=== PATIENT | female | born 1955 | race Hispanic/Latino ===

== ENCOUNTER 2018-11-01 17:24 | Inpatient (IN) | payer OTHER, MEDICARE | END 2018-11-05 15:30 | disposition home or self-care (01) | LOC: EDH 17:24 → EDHIP 22:15 → 3BH 23:28 | DX: K52.9 Noninfective gastroenteritis and colitis, unspecified (principal); I50.9 Heart failure, unspecified; I11.0 Hypertensive heart disease with heart failure ==

== ENCOUNTER 2019-03-12 23:31 | Observation (INO) | payer OTHER ==
[~2019-03-12] VITALS: Ht 157.5 cm; Wt 94.6 kg
[~2019-03-12 23:31] MED LIST: ACET-66 PO; ALBU8.5H8 IH; DIGO-34 PO; ENOX100D4 SQ; FURO40TA5 PO; OLME40TA18 PO; WARF-57 PO; WARF7.5T49 PO
[2019-03-12] MEDS ORDERED: ACETAMINOPHEN EXTRA STRENGTH 500 MG TABLET ONE (23:57)
[2019-03-13] MEDS ORDERED: IBUPROFEN 400 MG TABLET ONE (00:09)
[2019-03-13] MEDS ORDERED: LIDOCAINE HCL 2% VISCOUS 15 ML UDCUP ONE (00:09)
[2019-03-13] MEDS ORDERED: MAG HYDROX/AL HYDROX/SIMETH ES 30 ML SUSP UDCUP ONE (00:09)
[2019-03-13] MEDS ORDERED: IBUPROFEN 200 MG TAB ONE (00:10)
[2019-03-13] MEDS ORDERED: ALBUTEROL SULFATE 0.083% 2.5 MG/3 ML INH IH ONE (00:18)
[2019-03-13] MEDS ORDERED: LEVOFLOXACIN 750 MG/D5W 150 ML 150 ML ONE (01:38)
[2019-03-13] MEDS ORDERED: CEFTRIAXONE SODIUM 1 GM ONE (01:38)
[2019-03-13 02:15] LABS: BASOPHILS % (AUTO) 0.4 % (0.0-5.0); EOSINOPHILS % (AUTO) 4.4 % (0.0-8.0); HEMATOCRIT 35.2 % (36-48); LYMPHOCYTES % (AUTO) 13.9 % (21.0-51.0); MEAN CORPUSCULAR HEMOGLOBIN 29.7 pg (27.0-33.0); MEAN CORPUSCULAR HGB CONC 33.8 g/dL (32.0-36.0); MEAN CORPUSCULAR VOLUME 87.6 fL (79-99); MONOCYTES % (AUTO) 7.9 % (3.0-13.0); NEUTROPHILS % (AUTO) 73.4 % (40.0-77.0); NUCLEATED RED BLOOD CELLS 0.1 % (0.0-0.19); PLATELET COUNT (AUTO) 164 K/uL (130-400); RED BLOOD CELL COUNT(AUTO) 4.01 MIL/uL (4.00-5.50); RED CELL DISTRIBUTION WIDTH 14.5 % (11.0-15.5); WHITE BLOOD COUNT (AUTO) 8.3 K/uL (4.8-10.8)
[2019-03-13 02:30] LABS: INR 1.97 (0.85-1.15); PARTIAL THROMBOPLASTIN TIME 41.8 SEC (26.3-35.5); PROTHROMBIN TIME 20.2 SEC (9.6-11.6)
[2019-03-13 02:34] LABS: ALBUMIN 3.5 g/dL (3.5-5.0); BILIRUBIN,TOTAL 0.8 mg/dL (0.2-1.0); CREATININE 0.8 mg/dL (0.5-1.5); TOTAL PROTEIN, SERUM 7.4 g/dL (6.0-8.3)
[2019-03-13 02:43] LABS: B-TYPE NATRIURETIC PEPTIDE 88 pg/mL (0-100); POTASSIUM 2.7 mmol/L (3.5-5.1)
[2019-03-13] MEDS ORDERED: ONDANSETRON HCL 4 MG/2 ML VIAL IV PRN (03:30)
[2019-03-13] MEDS ORDERED: LACTULOSE 20 GM/30 ML UDCUP PO PRN (03:30)
[2019-03-13] MEDS ORDERED: ACETAMINOPHEN 325 MG TAB PO PRN (03:30)
[2019-03-13 03:45] LABS: APPEARANCE,URINE Clear (CLEAR); BILIRUBIN,URINE Negative (NEGATIVE); COLOR,URINE Yellow (YELLOW); GLUCOSE, URINE (UA) Negative (NEGATIVE); KETONES,URINE Negative (NEGATIVE); LEUKOCYTE ESTERASE ,URINE Moderate (NEGATIVE); NITRATE,URINE Negative (NEGATIVE); OCCULT BLOOD,URINE Moderate (NEGATIVE); PROTEIN,URINE Negative (NEGATIVE)
[2019-03-13] MEDS ORDERED: LIDOCAINE HCL-MPF 1% 2ML VIAL IV PRN (03:45)
[2019-03-13] MEDS ORDERED: POTASSIUM CHLORIDE 10MEQ/100ML 100 ML IV PRN (03:45)
[2019-03-13] MEDS ORDERED: POTASSIUM CHLORIDE 10% ELIXIR 20 MEQ/15 ML UDCUP PO PRN (03:45)
[2019-03-13] MEDS ORDERED: POTASSIUM CHLORIDE 20 MEQ ERTAB PO ONE (04:05)
[2019-03-13 04:18] LABS: BACTERIA,URINE Few /HPF (None Seen)
[2019-03-13 04:30] VITALS: BP 139/78
[2019-03-13] MEDS ORDERED: BENZ-51 PO (04:37)
[2019-03-13] MEDS ORDERED: AZIT500T4 PO (04:37)
[2019-03-13] MEDS ORDERED: DAYQUIL PO (04:44)
[2019-03-13] MEDS ORDERED: ALBU2.5V2 IH (04:46)
[2019-03-13] MEDS ORDERED: OSEL75CA17 PO (05:24)
[2019-03-13] MEDS: IPRATROPIUM/ALBUTEROL SULFATE 3 ML SOLUTION IH SCH ×4 (06:22→23:12)
[2019-03-13] MEDS: METHYLPREDNISOLONE SOD SUCC 40MG/ML 1ML IVP SCH ×3 (07:14→20:10)
[2019-03-13] MEDS: AZITHROMYCIN 500MG+NS 250ML 250 ML IV SCH (07:14)
[2019-03-13] MEDS: POTASSIUM CHLORIDE 20 MEQ ERTAB PO PRN ×3 (07:23→20:10)
[2019-03-13 07:29] VITALS: BP 136/75
[2019-03-13] MEDS: FAMOTIDINE 20MG TAB 20 MG TAB PO SCH ×2 (08:23→20:10)
[2019-03-13] MEDS ORDERED: ENOXAPARIN SODIUM 40 MG/0.4 ML SYRINGE SQ SCH (09:00)
[2019-03-13 11:02] VITALS: BP 153/84
--- NOTE | 2019-03-13 13:49 | NUR ---
DCP CM met with pt discussed dc plans. Pt is independent prior to admission, lives at home w/spouse. Denies any equipments/services. Feels safe to go back home, spouse able to assist with transportation and needs as necessary. DC plan to home once stable. CM to cont to follow up. Addendum: 03/13/19 at 1350 by FAROOQ ROONEY LVN CM Amended: Links added.
--- NOTE | 2019-03-13 14:44 | NUR ---
RD Notification Pt admitted for community acquired pneumonia, Hx of CAD, HTN,CHF. Pt with Heart Healthy Diet in place. Upon visit, Pt reports tolerating current diet order with no report of GI distress, Good PO intake (100%). Recommend to continue current diet order. Pt LBM 03/12/19. Pt monitored labs: K 2.7, BG 120. RD to continue to monitor. Please notify RD as nutrition concerns arise. Thank you. Addendum: 03/13/19 at [address] RD Amended: Links added.
[2019-03-13 16:42] VITALS: BP 162/94
[2019-03-13] MEDS ORDERED: WARFARIN SODIUM 5 MG TAB PO SCH (19:00)
[2019-03-13 19:49] VITALS: BP 179/97
[2019-03-13] MEDS: BENZONATATE 100 MG CAPSULE PO SCH (20:09)
[2019-03-13] MEDS: HYDRALAZINE HCL 20 MG/ML VIAL IV PRN (20:11)
[2019-03-13] MEDS: LEVOFLOXACIN 500 MG/D5W 100 ML 100 ML IV SCH (23:02)
[2019-03-13 23:24] VITALS: BP 148/94
[2019-03-14 03:59] VITALS: BP 114/72
[2019-03-14] MEDS ORDERED: GUAIFENESIN-DM 200/20 MG 10 ML PO PRN (04:30)
--- NOTE | 2019-03-14 04:30 | NUR ---
ROUNDS PATIENT AWAKE AND ALERT. VOICES ALL NEEDS. NO COMPLAINTS OF PAIN VOICED AT THIS TIME. PATIENT STATES THAT SHE NEEDS BETTER COUGH MEDICATION, BRANDY WAGGONER AWARE. NEW ORDERS RECEIVED AND CARRIED OUT. RESP EVEN AND UNLABORED. NO SOB NOTED. O2 ON AT 2LPM VIA NASAL CANNULA. UP AD KRISTINA. TOLERATING IV ABT WELL. NO ADVERSE REACTIONS NOTED. DROPLET PRECAUTIONS IN PLACE. NO SIGNS OF RESP DISTRESS NOTED. CALL LIGHT WITHIN REACH. WILL CONTINUE TO BE OBSERVED. Addendum: 03/14/19 at 0604 by WENDY ALFONSO RN RN Amended: Links added.
[2019-03-14 04:32] LABS: BASOPHILS % (AUTO) 0.2 % (0.0-5.0); EOSINOPHILS % (AUTO) 0.1 % (0.0-8.0); LYMPHOCYTES % (AUTO) 11.7 % (21.0-51.0); MEAN CORPUSCULAR HEMOGLOBIN 29.9 pg (27.0-33.0); MEAN CORPUSCULAR HGB CONC 34.1 g/dL (32.0-36.0); MEAN CORPUSCULAR VOLUME 87.6 fL (79-99); MONOCYTES % (AUTO) 4.7 % (3.0-13.0); NEUTROPHILS % (AUTO) 83.3 % (40.0-77.0); PLATELET COUNT (AUTO) 146 K/uL (130-400); RED CELL DISTRIBUTION WIDTH 14.6 % (11.0-15.5); WHITE BLOOD COUNT (AUTO) 7.1 K/uL (4.8-10.8)
[2019-03-14] MEDS: AZITHROMYCIN 500MG+NS 250ML 250 ML IV SCH (04:41)
[2019-03-14 04:42] LABS: CREATININE 0.8 mg/dL (0.5-1.5); POTASSIUM 4.1 mmol/L (3.5-5.1)
[2019-03-14] MEDS: METHYLPREDNISOLONE SOD SUCC 40MG/ML 1ML IVP SCH ×3 (04:42→20:05)
[2019-03-14] MEDS: IPRATROPIUM/ALBUTEROL SULFATE 3 ML SOLUTION IH SCH ×4 (06:13→23:09)
[2019-03-14 07:44] VITALS: BP 148/75
[2019-03-14] MEDS: Olmesartan Medoxomil 40 MG PO SCH (09:00)
[2019-03-14] MEDS: BENZONATATE 100 MG CAPSULE PO SCH ×3 (09:47→20:04)
[2019-03-14] MEDS: DIGOXIN 250 MCG TABLET PO SCH (09:47)
[2019-03-14] MEDS: FAMOTIDINE 20MG TAB 20 MG TAB PO SCH ×2 (09:47→20:04)
[2019-03-14] MEDS: FUROSEMIDE 40 MG TABLET PO SCH (09:47)
[2019-03-14 11:26] VITALS: BP 142/72
--- NOTE | 2019-03-14 14:39 | NUR ---
RD FOLLOW UP PT ON COUMADIN MEDICATION SINCE 2003 AND IS FAMILIAR WITH NUTRITION/MEDICATION INTERACTION PER PT. PT WAS ABLE TO IDENTITY FOODS HIGH IN VITAMIN K CONTENT AND AGREED TO RECEIVE MORE INFORMATION DURING VISIT. RD PROVIDED COUMADIN DIET AND NUTRITION EDUCATION. PT VERBALIZED UNDERSTANDING. EDUCATION MATERIALS WERE PROVIDED. Addendum: 03/14/19 at [address] Amended: Links added.
--- NOTE | 2019-03-14 14:43 | NUR ---
NUTRITION EDUCATION PT ON COUMADIN MEDICATION SINCE 2003 AND IS FAMILIAR WITH NUTRITION/MEDICATION INTERACTION PER PT. PT WAS ABLE TO IDENTITY FOODS HIGH IN VITAMIN K CONTENT AND AGREED TO RECEIVE MORE INFORMATION DURING VISIT. RD PROVIDED COUMADIN DIET AND NUTRITION EDUCATION. PT VERBALIZED UNDERSTANDING. EDUCATION MATERIALS WERE PROVIDED. Addendum: 03/14/19 at [address] Amended: Links added.
[2019-03-14] MEDS ORDERED: WARFARIN SODIUM 7.5 MG TAB PO SCH (16:00)
[2019-03-14 16:38] VITALS: BP 181/86
[2019-03-14] MEDS ORDERED: FUROSEMIDE 10 MG/ML 2ML VIAL IV SCH (17:55)
[2019-03-14 19:15] VITALS: BP 166/94
[2019-03-14] MEDS: HYDRALAZINE HCL 20 MG/ML VIAL IV PRN (20:05)
[2019-03-14] MEDS: ACETAMINOPHEN 325 MG TAB PO PRN (20:06)
[2019-03-14 23:31] VITALS: BP 150/96
[2019-03-15] MEDS: LEVOFLOXACIN 500 MG/D5W 100 ML 100 ML IV SCH (00:03)
[2019-03-15] MEDS ORDERED: METOPROLOL TARTRATE 1 MG/ML 5ML VIAL IV PRN (01:45)
[2019-03-15 02:47] VITALS: BP 157/103
[2019-03-15] MEDS: ACETAMINOPHEN 325 MG TAB PO PRN (03:20)
[2019-03-15] MEDS: IPRATROPIUM/ALBUTEROL SULFATE 3 ML SOLUTION IH SCH ×2 (05:09→10:54)
[2019-03-15 05:24] LABS: BASOPHILS % (AUTO) 0.1 % (0.0-5.0); HEMATOCRIT 33.9 % (36-48); LYMPHOCYTES % (AUTO) 7.6 % (21.0-51.0); MEAN CORPUSCULAR HEMOGLOBIN 29.8 pg (27.0-33.0); MEAN CORPUSCULAR HGB CONC 33.9 g/dL (32.0-36.0); MONOCYTES % (AUTO) 4.8 % (3.0-13.0); NEUTROPHILS % (AUTO) 87.5 % (40.0-77.0); PLATELET COUNT (AUTO) 206 K/uL (130-400); RED BLOOD CELL COUNT(AUTO) 3.86 MIL/uL (4.00-5.50); WHITE BLOOD COUNT (AUTO) 11.5 K/uL (4.8-10.8)
[2019-03-15] MEDS: AZITHROMYCIN 500MG+NS 250ML 250 ML IV SCH (05:26)
[2019-03-15] MEDS: METHYLPREDNISOLONE SOD SUCC 40MG/ML 1ML IVP SCH ×2 (05:26→14:00)
[2019-03-15 05:31] LABS: CREATININE 0.8 mg/dL (0.5-1.5); POTASSIUM 3.7 mmol/L (3.5-5.1)
[2019-03-15 05:35] LABS: INR 1.96 (0.85-1.15); PROTHROMBIN TIME 20.1 SEC (9.6-11.6)
[2019-03-15 05:45] VITALS: BP 139/80
[2019-03-15] MEDS: Olmesartan Medoxomil 40 MG PO SCH (07:53)
[2019-03-15 08:00] VITALS: BP 147/90
[2019-03-15] MEDS: DIGOXIN 250 MCG TABLET PO SCH (09:21)
[2019-03-15] MEDS: FAMOTIDINE 20MG TAB 20 MG TAB PO SCH (09:21)
[2019-03-15] MEDS: FUROSEMIDE 40 MG TABLET PO SCH (09:21)
[2019-03-15] MEDS: BENZONATATE 100 MG CAPSULE PO SCH ×2 (09:21→14:00)
[2019-03-15] MEDS ORDERED: CEFD300C3 PO (11:13)
[2019-03-15 11:55] VITALS: BP 152/94
--- NOTE | 2019-03-15 13:46 | NUR ---
DISCHARGE HOME INSTRUCTIONS GIVEN AND EXPLAINED UTILIZING TEACH BACK METHOD. INSTRUCTED ON PT/INR FOLLOW UP WITH DR. BRIDGES ON 03/20/19 AT 8:30 A.M. SPOKE WITH CAMERON FROM DR. BRIDGES'S OFFICE. PT VERBALIZED UNDERSTANDING.
[2019-03-16] MEDS ORDERED: WARFARIN SODIUM 5 MG TAB PO SCH (16:00)
[2019-03-19] MEDS ORDERED: WARFARIN SODIUM 7.5 MG TAB PO SCH (16:00)
[2019-03-20] MEDS ORDERED: WARFARIN SODIUM 7.5 MG TAB PO SCH (16:00)
== END 2019-03-15 14:45 | disposition home or self-care (01) ==
LOC: EDH 23:31 → INTOOBSV 03-13 03:26 → EDHIP 03-13 03:26 → 4BH 03-13 04:58
PROVIDERS: ADMIT Hospitalist; ATTEND Hospitalist
DX: J18.9 Pneumonia, unspecified organism (principal); E87.6 Hypokalemia; J45.901 Unspecified asthma with (acute) exacerbation; I25.10 Atherosclerotic heart disease of native coronary artery without angina pectoris; I11.0 Hypertensive heart disease with heart failure; I50.9 Heart failure, unspecified; I48.91 Unspecified atrial fibrillation; I34.0 Nonrheumatic mitral (valve) insufficiency; Z95.1 Presence of aortocoronary bypass graft; Z98.51 Tubal ligation status; Z90.710 Acquired absence of both cervix and uterus; Z90.49 Acquired absence of other specified parts of digestive tract; Z91.14 Patient's other noncompliance with medication regimen; Z79.01 Long term (current) use of anticoagulants; Z79.899 Other long term (current) drug therapy; Z88.0 Allergy status to penicillin; Z88.6 Allergy status to analgesic agent
CPT/HCPCS: 36415; 71046; 80048; 80053; 81001; 83605; 83880; 84484; 85025; 85610; 85730; 87040; 87071; 87205; 87804; 93005; 94640; 94664; 96365; 96366; 96367; 96368; 96372; 96375; 96376; G0378; J0360; J0456; J0696; J1650; J1956; J2920; J3490

== ENCOUNTER 2021-05-08 05:52 | Day surgery (SDC) | payer OTHER ==
[2021-05-06 10:05] LABS: BASOPHILS % (AUTO) 0.4 % (0.0-5.0); EOSINOPHILS % (AUTO) 1.6 % (0.0-8.0); HEMATOCRIT 40.2 % (36-48); LYMPHOCYTES % (AUTO) 29.3 % (21.0-51.0); MEAN CORPUSCULAR HEMOGLOBIN 29.4 pg (27.0-33.0); MEAN CORPUSCULAR HGB CONC 33.1 g/dL (32.0-36.0); MEAN CORPUSCULAR VOLUME 88.9 fL (79-99); MONOCYTES % (AUTO) 8.2 % (3.0-13.0); NEUTROPHILS % (AUTO) 60.2 % (40.0-77.0); PLATELET COUNT (AUTO) 126 K/uL (130-400); RED BLOOD CELL COUNT(AUTO) 4.52 MIL/uL (4.00-5.50); RED CELL DISTRIBUTION WIDTH 13.4 % (11.0-15.5); WHITE BLOOD COUNT (AUTO) 6.7 K/uL (4.8-10.8)
[2021-05-06 10:08] LABS: APPEARANCE,URINE CLEAR (CLEAR); BILIRUBIN,URINE NEGATIVE (NEGATIVE); COLOR,URINE YELLOW (YELLOW); GLUCOSE, URINE (UA) NEGATIVE (NEGATIVE); KETONES,URINE NEGATIVE (NEGATIVE); LEUKOCYTE ESTERASE ,URINE NEGATIVE (NEGATIVE); NITRATE,URINE NEGATIVE (NEGATIVE); OCCULT BLOOD,URINE SMALL (NEGATIVE); PROTEIN,URINE NEGATIVE (NEGATIVE); UROBILINOGEN,URINE 0.2 mg/dL (0.2-1.0)
[2021-05-06 10:19] LABS: BACTERIA,URINE Few /HPF (None Seen); INR 1.35 (0.85-1.15); PROTHROMBIN TIME 14.3 SEC (9.6-11.6); RBC,URINE 0-1 /HPF (0-1); WBC,URINE 0-1 /HPF (0-1)
[2021-05-06 10:21] LABS: CREATININE 0.8 mg/dL (0.5-1.5); PARTIAL THROMBOPLASTIN TIME 42.4 SEC (26.3-35.5); POTASSIUM 3.9 mmol/L (3.5-5.1)
[2021-05-07 12:08] VITALS: BP 184/99
[2021-05-08] VITALS (12 sets, daily range): BP systolic 136–205; BP diastolic 58–91
[~2021-05-08] VITALS: Ht 157.5 cm; Wt 93.3 kg
[~2021-05-08 05:52] MED LIST changes: +0.9% NACL 500ML IV.SOLN 500 ML IV SCH; -ACET-66 PO; -ENOX100D4 SQ; +ENOX80DI8 SQ
[2021-05-08] MEDS ORDERED: 0.9%NACL 1000ML 1,000 ML IV ONE (06:08)
[2021-05-08] MEDS ORDERED: HEPARIN 10,000 UNIT/10ML (1,000 UNIT/ML) VIAL ONE (07:30)
[2021-05-08] MEDS ORDERED: LIDOCAINE HCL 400MG/20ML VIAL ONE ×2 (07:30→07:46)
[2021-05-08] MEDS ORDERED: IOHEXOL-350 50ML VIAL IV ONE (07:30)
[2021-05-08] MEDS ORDERED: LABETALOL 20MG VIAL IV ONE (08:28)
== END 2021-05-08 17:05 | disposition home or self-care (01) ==
LOC: DAH 05:52
PROVIDERS: ATTEND Internal Medicine Cardiovascular Disease
DX: I25.10 Atherosclerotic heart disease of native coronary artery without angina pectoris (principal); I05.0 Rheumatic mitral stenosis; I27.20 Pulmonary hypertension, unspecified; I48.20 Chronic atrial fibrillation, unspecified; Z79.01 Long term (current) use of anticoagulants; Z88.0 Allergy status to penicillin; Z88.8 Allergy status to other drugs, medicaments and biological substances; Z79.899 Other long term (current) drug therapy; Z98.890 Other specified postprocedural states
CPT/HCPCS: 36415; 80048; 81001; 85025; 85610; 85730; 93460; 93567; A4215; A4216; A4221; A4222; A4223 ×3; A4606; A4663; C1769; C1894 ×3; J1644 ×2; J3490 ×3; J7030; Q9967